=== PATIENT | female | born 1965 | race Caucasian/White ===

== ENCOUNTER 2016-10-07 18:40 | Emergency (ER) | payer BC, OTHER ==
[2016-10-07 18:59] VITALS: BP 150/74; PULSE 70; TEMP 98; BMI 21.9
--- NOTE | 2016-10-07 19:29 | PDOC ---
History of Present Illness <Ezio Mathis - Last Filed: 10/07/16 19:24> - General History Source: Patient Exam Limitations: No Limitations - History of Present Illness Initial Comments: 10/07/16 19:30 The patient is a 51 year old female, with no significant past medical history who presents to the emergency department with intermittent episodes of dizziness , chest pain, and SOB, for about 2-3 weeks. She reports having fainting sensations about a week ago, with numbness in her left arm followed by dizziness and SOB. She reports after on having an abnormal EKG and abnormal blood pressure reading at an urgent care, and was sent to [place] [facility] where she was later discharged home. She reports this week having a similar episode where she was taken to [facility] ER and was discharged with a referral to cardiology. She reports while at the Cardiology was given a prescription of Atenolol. She reports today while at school having another episode of dizziness and SOB. She denies recent fevers, chills, headache or dizziness. She denies recent nausea, vomit, diarrhea or constipation. She denies recent dysuria, frequency, urgency or hematuria. Allergies: NKA Past surgical history: None reported. Social history: Nonsmoker. Denies EtOH use and drug use. Primary Care Physician: <Meng Nathan - Last Filed: 10/07/16 19:31> - General Chief Complaint: Psychiatric Stated Complaint: HEAD & ARM NUMBNESS Past History - Past Medical History HTN: Yes Hypercholesterolemia: Yes - Psycho/Social/Smoking Cessation Hx Anxiety: No Suicidal Ideation: No Smoking Status: No Smoking History: Never smoked Number of Cigarettes Smoked Daily: 0 Hx Alcohol Use: No Drug/Substance Use Hx: No Substance Use Type: None <Ezio Mathis - Last Filed: 10/07/16 19:24> <Mneg Nathan - Last Filed: 10/07/16 19:31> - Past Medical History Allergies/Adverse Reactions: Allergies Allergy/AdvReac Type Severity Reaction Status Date / Time No Known Allergies Allergy Verified 10/07/16 18:50 Home Medications: Ambulatory Orders Atenolol [Tenormin] 25 mg PO DAILY 10/07/16 Rosuvastatin [Crestor -] 10 mg PO HS 10/07/16 Review of Systems - Review of Systems Constitutional: No: Symptoms Reported HEENTM: No: Symptoms Reported Respiratory: Yes: Shortness of Breath Cardiac (ROS): Yes: Chest Tightness : No: Symptoms Reported Musculoskeletal: No: Symptoms Reported Integumentary: No: Symptoms Reported Neurological: Yes: Numbness, Tingling Endocrine: No: Symptoms Reported All Other Systems: Reviewed and Negative <Meng Nathan - Last Filed: 10/07/16 19:31> *Physical Exam - Vital Signs Last Vital Signs Temp Pulse Resp BP Pulse Ox 98.0 F 70 16 150/74 100 10/07/16 18:48 10/07/16 18:48 10/07/16 18:48 10/07/16 18:48 10/07/16 18:48 - Physical Exam General Appearance: Yes: Nourished, Appropriately Dressed. No: Apparent Distress HEENT: positive: EOMI, SD, Normal ENT Inspection Neck: positive: Supple. negative: Tender, Carotid bruit Respiratory/Chest: positive: Lungs Clear, Normal Breath Sounds. negative: Respiratory Distress Cardiovascular: positive: Regular Rhythm, Regular Rate Gastrointestinal/Abdominal: positive: Normal Bowel Sounds, Soft. negative: Tender Musculoskeletal: positive: Normal Inspection Extremity: positive: Normal Capillary Refill, Normal Range of Motion Integumentary: positive: Normal Color Neurologic: positive: administrative support assoc II-XII NML intact, Fully Oriented, Alert, Normal Mood/ Affect, Normal Response, Motor Strength 5/5, Other (no drifts. neg romberg's. ) <Ezio Mathis - Last Filed: 10/07/16 19:24> - Vital Signs Last Vital Signs Temp Pulse Resp BP Pulse Ox 98.0 F 70 16 150/74 100 10/07/16 18:48 10/07/16 18:48 10/07/16 18:48 10/07/16 18:48 10/07/16 18:48 <Meng Nathan - Last Filed: 10/07/16 19:31> Medical Decision Making - Medical Decision Making 10/07/16 19:25 hx and physical c/w anxiety/stress disorder. pt insists she is under no stress and wants to know what's wrong with her now. I d/w my findings and impression with her and advice her to keep appointment w/ pmd tomorrow and continue her current evaluations as out patient <Ezio Mathis - Last Filed: 10/07/16 19:24> *DC/Admit/Observation/Transfer <Ezio Mathis - Last Filed: 10/07/16 19:24> <Meng Nathan - Last Filed: 10/07/16 19:31> Diagnosis at time of Disposition: Dizziness - Discharge Dispostion Disposition: HOME Condition at time of disposition: Good - Referrals Referrals: Desire Santacruz MD [Primary Care Provider] - Call tomorrow - Patient Instructions Additional Instructions: RELAXATION TECHNIQUES CONTROLLING YOUR BREATHING DISCUSSED SEE YOUR DOCTOR TOMORROW PLANNED RETURN IF NEW SYMPTOMS
--- NOTE | 2016-10-08 12:39 | EKG ---
Test Reason : Blood Pressure : / mmHG Vent. Rate : 055 BPM Atrial Rate : 055 BPM P-R Int : 176 ms QRS Dur : 072 ms QT Int : 412 ms P-R-T Axes : 071 -16 031 degrees QTc Int : 394 ms SINUS BRADYCARDIA CANNOT RULE OUT ANTERIOR INFARCT , AGE UNDETERMINED NO PREVIOUS ECGS AVAILABLE Confirmed by MD TOBIN, ANANDA ([id number]) on 10/08/2016 12:38:43 PM Referred By: JORGE A Confirmed By:ANANDA RUDD MD
== END 2016-10-07 19:48 | disposition home or self-care (01) ==
LOC: FER 18:40
DX: R42 Dizziness and giddiness (principal); I10 Essential (primary) hypertension; E78.00 Pure hypercholesterolemia, unspecified
CPT/HCPCS: 93005; 99282-25

== ENCOUNTER 2020-12-17 10:14 | Day surgery (SDC) | payer OTHER, BC ==
[2020-12-09 11:34] VITALS: BMI 24.0
[2020-12-17 10:59] VITALS: TEMP 98.2
[2020-12-17] MEDS ORDERED: MIDAZOLAM HCL 2 MG/2 ML SINGLE DOSE VIAL ONE (11:35)
[2020-12-17] MEDS ORDERED: fentaNYL CITRATE 250 MCG/5 ML VIAL ONE (11:35)
[2020-12-17] MEDS ORDERED: PROPOFOL 20 ML ONE (11:36)
[2020-12-17] MEDS ORDERED: LIDOCAINE HCL 2% (50ML VIAL) NR ONE ×2 (11:46→12:02)
[2020-12-17] MEDS ORDERED: LIDOCAINE HCL 2% (20ML MULTI-DOSE VIAL) ONE (11:49)
[2020-12-17] MEDS ORDERED: ONDANSETRON 4 MG/2 ML VIAL ONE (12:20)
[2020-12-17] MEDS ORDERED: KETOROLAC TROMETHAMINE 30 MG/1 ML VIAL ONE (12:20)
[2020-12-17] MEDS ORDERED: DEXAMETHASONE SOD PHOSPHATE 4 MG/1 ML VIAL ONE (12:20)
[2020-12-17] MEDS ORDERED: BUPIVACAINE HCL/PF 0.5% (5 MG/ML) 30 ML VIAL IJ ONE (12:20)
[2020-12-17 13:28] VITALS: BP 122/70; PULSE 72
== END 2020-12-17 14:06 | disposition home or self-care (01) ==
LOC: FASU 10:14
PROVIDERS: ATTEND Orthopaedic Surgery Hand Surgery
PROC: 0JNK0ZZ Release Left Hand Subcutaneous Tissue and Fascia, Open Approach (ICD-10-PCS; principal; 2020-12-17 12:00)
DX: M72.0 Palmar fascial fibromatosis [Dupuytren] (principal)
CPT/HCPCS: 88307-TC

== ENCOUNTER 2021-08-20 09:03 | Emergency (ER) | payer BC, OTHER ==
[2021-08-20 09:36] VITALS: BP 138/82; PULSE 76; TEMP 98.6; BMI 21.7
== END 2021-08-20 11:05 | disposition home or self-care (01) ==
LOC: FER 09:03 → SUPCPDRO 09:03 → FER 11:05
DX: R53.1 Weakness (principal); R42 Dizziness and giddiness
CPT/HCPCS: 36415; 84484; 93005; 99284-25

== ENCOUNTER 2021-09-10 09:29 | Day surgery (SDC) | payer BC, OTHER ==
[2021-09-08 14:22] VITALS: BMI 21.2
[2021-09-10] MEDS ORDERED: BUPIVACAINE HCL/PF 0.25% (2.5MG/ML) 10 ML VIAL ONE (10:52)
[2021-09-10] MEDS ORDERED: MIDAZOLAM HCL 2 MG/2 ML SINGLE DOSE VIAL ONE (12:15)
[2021-09-10] MEDS ORDERED: PROPOFOL 20 ML ONE (12:25)
[2021-09-10] MEDS ORDERED: BUPIVACAINE HCL/PF 0.25% (2.5MG/ML) 10 ML VIAL IJ ONE (12:40)
[2021-09-10] MEDS ORDERED: ONDANSETRON 4 MG/2 ML VIAL IVPUSH PRN (13:07)
[2021-09-10] MEDS ORDERED: oxyCODONE HCL 5 MG TABLET PO PRN ×2 (13:07→13:35)
[2021-09-10] MEDS ORDERED: PROMETHAZINE HCL 25 MG/1 ML VIAL IVPUSH PRN (13:07)
[2021-09-10] MEDS ORDERED: LACTATED RINGERS SOLUTION 1,000 ML IV SCH (13:15)
[2021-09-10] MEDS ORDERED: ACETAMINOPHEN INJECTION 100 ML IVPB ONE (13:18)
[2021-09-10] MEDS ORDERED: ACETAMINOPHEN 1000 MG/100 ML BAG IVPB ONE (13:32)
[2021-09-10 14:50] VITALS: TEMP 97.8
[2021-09-10 14:53] VITALS: BP 131/67; PULSE 65
== END 2021-09-10 15:15 | disposition home or self-care (01) ==
LOC: FASU 09:29
PROVIDERS: ATTEND Orthopaedic Surgery Sports Medicine
PROC: 0SBC4ZZ Excision of Right Knee Joint, Percutaneous Endoscopic Approach (ICD-10-PCS; principal; 2021-09-10 12:39)
DX: S83.241A Other tear of medial meniscus, current injury, right knee, initial encounter (principal); X58.XXXA Exposure to other specified factors, initial encounter; Y93.9 Activity, unspecified; Y92.9 Unspecified place or not applicable
CPT/HCPCS: 94760

== ENCOUNTER 2022-10-10 12:12 | Emergency (ER) | payer BC, OTHER ==
[2022-10-10 12:30] VITALS: BP 124/56; PULSE 81; RESP 18; TEMP 97.6; BMI 21.2
[2022-10-10] MEDS ORDERED: ACETAMINOPHEN 1000 MG/100 ML BAG IVPB ONE (14:08)
[2022-10-10] MEDS ORDERED: SODIUM CHLORIDE 1,000 ML IV ONE (14:08)
[2022-10-10] MEDS ORDERED: ACETAMINOPHEN INJECTION 100 ML IVPB ONE (14:16)
[2022-10-10 14:52] LABS: ALBUMIN 4.3 g/dl (3.4-5.0); BILIRUBIN,TOTAL 0.6 mg/dl (0.2-1); CALCIUM 9.7 mg/dl (8.5-10); CREATININE 0.7 mg/dl (0.55-1.3); TOT PROT 8.1 g/dl (6.4-8.2)
[2022-10-10 14:58] LABS: HEMATOCRIT 43.9 % (32.4-45.2); HEMOGLOBIN 14.7 G/dL (10.7-15.3); MCH 30.8 pg (25.7-33.7); MCHC 33.6 g/dl (32.0-36.0); MEAN CELL VOLUME 91.7 fl (80-96); RBC 4.79 10^6/uL (3.60-5.2); RDW 13.4 % (11.6-15.6); WHITE BLOOD COUNT 7.8 10^3/uL (4.0-10.8)
[2022-10-10 15:03] LABS: PLATELET ESTIMATE ADEQUATE
== END 2022-10-10 17:30 | disposition home or self-care (01) ==
LOC: FER 12:12
DX: R10.30 Lower abdominal pain, unspecified (principal)
CPT/HCPCS: 36415; 74177-TC; 80053; 81003; 85027; 87086; 99285-25; Q9967

== ENCOUNTER 2023-02-18 18:25 | Emergency (ER) | payer BC, OTHER ==
[2023-02-18 18:43] VITALS: BP 170/92; PULSE 69; RESP 20; TEMP 98.1; BMI 22.1
[2023-02-18] MEDS ORDERED: ONDANSETRON *ODT* 4 MG TABLET SL ONE (19:30)
[2023-02-18] MEDS ORDERED: ONDANSETRON *ODT* 4 MG TABLET ONE (19:32)
== END 2023-02-18 19:59 | disposition home or self-care (01) ==
LOC: FER 18:25
DX: R51.9 Headache, unspecified (principal); R07.89 Other chest pain; R68.2 Dry mouth, unspecified; R19.7 Diarrhea, unspecified
CPT/HCPCS: 99283-25; Q0162

== ENCOUNTER 2023-04-20 17:25 | Emergency (ER) | payer BC, OTHER ==
[2023-04-20 17:41] VITALS: BP 157/84; PULSE 71; RESP 18; TEMP 97.8; BMI 22.4
[2023-04-20] MEDS ORDERED: ACETAMINOPHEN 500 MG TABLET (FP) PO ONE (18:13)
[2023-04-20] MEDS ORDERED: ACETAMINOPHEN 325 MG TABLET (FP) ONE (18:20)
[2023-04-20] MEDS ORDERED: oxyCODONE HCL 5 MG TABLET PO ONE (18:56)
[2023-04-20] MEDS ORDERED: oxyCODONE HCL 5 MG TABLET ONE (19:10)
== END 2023-04-20 20:24 | disposition home or self-care (01) ==
LOC: FER 17:25
DX: S16.1XXA Strain of muscle, fascia and tendon at neck level, initial encounter (principal); S09.90XA Unspecified injury of head, initial encounter; W20.8XXA Other cause of strike by thrown, projected or falling object, initial encounter
CPT/HCPCS: 70450-TC; 72125-TC; 99284-25

== ENCOUNTER 2023-08-17 18:00 | Emergency (ER) | payer BC, OTHER ==
[2023-08-17] MEDS ORDERED: SODIUM CHLORIDE 0.9% 500 ML INFUS.BAG IV ONE (18:36)
[2023-08-17] MEDS ORDERED: ACETAMINOPHEN 1000 MG/100 ML BAG IVPB ONE (18:36)
[2023-08-17] MEDS ORDERED: CEFTRIAXONE 1,000 MG in DEXTROSE 5%-WATER - 50 ML IVPB ONE (18:36)
[2023-08-17 18:38] VITALS: RESP 16; BMI 22.6
[2023-08-17] MEDS ORDERED: ACETAMINOPHEN INJECTION 100 ML IVPB ONE (18:48)
[2023-08-17] MEDS ORDERED: cefTRIAXone SODIUM 1 GM VIAL ONE (18:48)
[2023-08-17 19:01] LABS: EPITHELIAL CELLS 0-5 /hpf
[2023-08-17 19:22] LABS: HEMATOCRIT 39.6 % (32.4-45.2); HEMOGLOBIN 13.3 G/dL (10.7-15.3); MCH 30.8 pg (25.7-33.7); MCHC 33.5 g/dl (32.0-36.0); MEAN CELL VOLUME 91.8 fl (80-96); MEAN PLT VOLUME 8.5 fl (7.5-11.1); PLATELET COUNT 270.7 10^3/uL (134-434); RBC 4.31 10^6/uL (3.60-5.2); RDW 13.9 % (11.6-15.6); WHITE BLOOD COUNT 8.1 10^3/uL (4.0-10.8)
[2023-08-17 19:32] LABS: ALBUMIN 4.5 g/dl (3.4-5.0); BILIRUBIN,TOTAL 0.3 mg/dl (0.2-1); CALCIUM 9.6 mg/dl (8.5-10.1); CREATININE 0.9 mg/dl (0.6-1.3); POTASSIUM 3.8 mmol/L (3.5-5.1); TOT PROT 7.7 g/dl (6.4-8.2)
[2023-08-17 19:36] LABS: PLATELET ESTIMATE ADEQUATE
[2023-08-17 20:15] VITALS: BP 138/68; PULSE 66; TEMP 97.9
[2023-08-17] MEDS ORDERED: CIPROFLOXACIN 250 MG TABLET (RESTRICTED TO ID) PO ONE (21:40)
== END 2023-08-17 21:56 | disposition home or self-care (01) ==
LOC: FER 18:00
PROC: 3E03329 Introduction of Other Anti-infective into Peripheral Vein, Percutaneous Approach (ICD-10-PCS; principal; 2023-08-17)
PROC: 3E033NZ Introduction of Analgesics, Hypnotics, Sedatives into Peripheral Vein, Percutaneous Approach (ICD-10-PCS; 2023-08-17)
DX: R30.0 Dysuria (principal); R10.30 Lower abdominal pain, unspecified; N39.0 Urinary tract infection, site not specified
CPT/HCPCS: 36415; 74177-TC; 80053; 81003; 81015; 85027; 87086; 99285-25; J0131; Q9967

== ENCOUNTER 2023-08-19 20:27 | Emergency (ER) | payer BC, OTHER ==
[2023-08-19 20:46] VITALS: BP 150/66; PULSE 62; RESP 16; TEMP 98.2; BMI 22.6
== END 2023-08-19 21:58 | disposition home or self-care (01) ==
LOC: FER 20:27
DX: K59.00 Constipation, unspecified (principal); R11.0 Nausea; R10.84 Generalized abdominal pain
CPT/HCPCS: 99283-25

== ENCOUNTER 2023-09-01 03:57 | Day surgery (SDC) | payer BC, OTHER ==
[2023-08-29 11:39] VITALS: BMI 22.8
[2023-09-01] MEDS ORDERED: BUPIVACAINE HCL/PF 0.25% (2.5MG/ML) 10 ML VIAL ONE (10:49)
[2023-09-01] MEDS ORDERED: SUCCINYLCHOLINE CHLORIDE 200 MG/10 ML SYRINGE ONE (14:30)
[2023-09-01] MEDS ORDERED: PROPOFOL 40 ML ONE (14:30)
[2023-09-01] MEDS ORDERED: MIDAZOLAM HCL 2 MG/2 ML SINGLE DOSE VIAL ONE (14:30)
[2023-09-01] MEDS ORDERED: ROCURONIUM BROMIDE 50 MG/5 ML SYRINGE ONE ×2 (14:30→16:02)
[2023-09-01] MEDS: ceFAZolin SODIUM 1 GM VIAL IVPB ONE (14:50)
[2023-09-01] MEDS: BUPIVACAINE HCL/PF 0.25% (2.5MG/ML) 10 ML VIAL IJ ONE (15:20)
[2023-09-01] MEDS ORDERED: SEVOFLURANE 250 ML BTL ONE (15:40)
[2023-09-01] MEDS ORDERED: KETOROLAC TROMETHAMINE 30 MG/1 ML VIAL ONE (16:07)
[2023-09-01] MEDS ORDERED: ONDANSETRON 4 MG/2 ML VIAL ONE (17:08)
[2023-09-01] MEDS ORDERED: SUGAMMADEX SODIUM 200 MG/2 ML VIAL ONE (17:17)
[2023-09-01] MEDS ORDERED: ONDANSETRON 4 MG/2 ML VIAL IVPUSH PRN (18:15)
[2023-09-01] MEDS ORDERED: LACTATED RINGERS SOLUTION 1,000 ML IV SCH (18:15)
[2023-09-01] MEDS ORDERED: PROMETHAZINE HCL 25 MG/1 ML VIAL IVPB PRN (18:15)
[2023-09-01] MEDS ORDERED: oxyCODONE HCL 5 MG TABLET PO PRN (18:15)
[2023-09-01] MEDS ORDERED: ACETAMINOPHEN INJECTION 100 ML IVPB ONE (18:29)
[2023-09-01] MEDS: ACETAMINOPHEN 1000 MG/100 ML BAG IVPB PRN (18:31)
[2023-09-01] MEDS ORDERED: morphine CARPU-JECT 2 MG/1 ML DISP.SYRIN IVPUSH PRN (19:10)
[2023-09-01] MEDS ORDERED: ACETAMINOPHEN 650 MG/20.3 ML ORAL SOLUTION (CUPS) PO SCH (19:15)
[2023-09-01] MEDS: oxyCODONE HCL 5 MG TABLET PO PRN (20:47)
[2023-09-01] MEDS: LACTATED RINGERS SOLUTION 1,000 ML/1,000 ML INFUS.BAG IV SCH (20:51)
[2023-09-01] MEDS ORDERED: KETOROLAC TROMETHAMINE 30 MG/1 ML VIAL IVPUSH SCH (22:00)
[2023-09-01] MEDS: KETOROLAC TROMETHAMINE 30 MG/1 ML VIAL IVPUSH SCH (23:53)
[2023-09-02] MEDS: ACETAMINOPHEN 650 MG/20.3 ML ORAL SOLUTION (CUPS) PO SCH (01:00)
[2023-09-02 09:19] VITALS: BP 120/86; PULSE 75; RESP 20; TEMP 98.1
[2023-09-02] MEDS: LOSARTAN POTASSIUM 50 MG TABLET PO SCH (12:10)
[2023-09-02] MEDS ORDERED: ATORVASTATIN CA 40 MG TABLET (FP) PO SCH (22:00)
== END 2023-09-02 14:35 | disposition home or self-care (01) ==
LOC: JASU-SURG 03:57 → JASUSAT 03:57 → J6S 20:30 → JASUSAT 09-02 14:35
PROVIDERS: ATTEND Surgery
PROC: 8E0W4CZ Robotic Assisted Procedure of Trunk Region, Percutaneous Endoscopic Approach (ICD-10-PCS; 2023-09-01)
PROC: 0WUF4JZ Supplement Abdominal Wall with Synthetic Substitute, Percutaneous Endoscopic Approach (ICD-10-PCS; 2023-09-01)
PROC: 0WUF4JZ Supplement Abdominal Wall with Synthetic Substitute, Percutaneous Endoscopic Approach (ICD-10-PCS; principal; 2023-09-01 14:00)
DX: K42.9 Umbilical hernia without obstruction or gangrene (principal); K43.9 Ventral hernia without obstruction or gangrene
CPT/HCPCS: 49593; S2900; 94760; C1781; J0131

== ENCOUNTER 2023-12-05 08:10 | Emergency (ER) | payer BC, OTHER ==
[2023-12-05 08:19] VITALS: BP 142/72; PULSE 76; RESP 18; TEMP 97.9; BMI 22.4
[2023-12-05] MEDS ORDERED: MECLIZINE HCL 25 MG TABLET (FP) ONE (09:35)
[2023-12-05] MEDS ORDERED: METOCLOPRAMIDE HCL INJECTION 10 MG/2 ML VIAL ONE (09:35)
[2023-12-05] MEDS ORDERED: ACETAMINOPHEN INJECTION 100 ML IVPB ONE (09:35)
[2023-12-05 09:40] LABS: BASO % 0.7 % (0-2.0); EOS % 3.4 % (0-4.5); HEMATOCRIT 38.7 % (32.4-45.2); MCH 30.3 pg (25.7-33.7); MCHC 33.6 g/dl (32.0-36.0); MEAN CELL VOLUME 90.2 fl (80-96); MEAN PLT VOLUME 8.5 fl (7.5-11.1); MONO % 5.3 % (3.8-10.2); NEUT % 61.6 % (42.8-82.8); PLATELET COUNT 291 10^3/uL (134-434); RBC 4.29 M/mm3 (3.60-5.2); RDW 13.4 % (11.6-15.6); WHITE BLOOD COUNT 5.6 K/mm3 (4.0-10.0)
[2023-12-05] MEDS: METOCLOPRAMIDE HCL INJECTION 10 MG/2 ML VIAL IVPUSH ONE (09:52)
[2023-12-05] MEDS: ACETAMINOPHEN 1000 MG/100 ML BAG IVPB ONE (09:52)
[2023-12-05] MEDS: LACTATED RINGERS SOLUTION 1000 ML INFUS.BAG IV ONE (09:52)
[2023-12-05] MEDS: MECLIZINE HCL 25 MG TABLET (FP) PO ONE (09:53)
[2023-12-05 09:55] LABS: PH,URINE 6.5 (5.0-8.0); URINE APPEARANCE CLEAR; URINE BILIRUBIN NEGATIVE (NEGATIVE); URINE COLOR YELLOW; URINE GLUCOSE (UA) NEGATIVE (NEGATIVE); URINE KETONE NEGATIVE (NEGATIVE); URINE LEUK ESTERASE NEGATIVE (NEGATIVE); URINE NITRITE NEGATIVE (NEGATIVE); URINE PROTEIN NEGATIVE (NEGATIVE); URINE UROBILINOGEN 0.2 mg/dL (0.2-1.0)
[2023-12-05 10:14] LABS: POTASSIUM 4.3 mmol/L (3.5-5.1)
[2023-12-05 10:16] LABS: CALCIUM 9.6 mg/dL (8.5-10.1)
[2023-12-05 10:17] LABS: ALBUMIN 3.6 g/dl (3.4-5.0); BLOOD UREA NITROGEN 13.8 mg/dL (7-18); MAGNESIUM 2.5 mg/dL (1.8-2.4)
[2023-12-05 10:20] LABS: CREATININE 0.8 mg/dL (0.55-1.3)
[2023-12-05 10:21] LABS: BILIRUBIN,TOTAL 0.4 mg/dL (0.2-1); TOT PROT 7.5 g/dl (6.4-8.2)
== END 2023-12-05 13:00 | disposition home or self-care (01) ==
LOC: JER 08:10
PROC: 3E033NZ Introduction of Analgesics, Hypnotics, Sedatives into Peripheral Vein, Percutaneous Approach (ICD-10-PCS; principal; 2023-12-05)
PROC: 3E033GC Introduction of Other Therapeutic Substance into Peripheral Vein, Percutaneous Approach (ICD-10-PCS; 2023-12-05)
DX: R51.9 Headache, unspecified (principal); R42 Dizziness and giddiness; R26.81 Unsteadiness on feet; H53.149 Visual discomfort, unspecified; R20.2 Paresthesia of skin; R53.1 Weakness; Z20.822 Contact with and (suspected) exposure to COVID-19
CPT/HCPCS: 0241U-QW; 36415; 70450-TC; 70496-TC; 70498-TC; 80053; 81003; 83735; 85025; 87086; 87186; 99284-25; J0131; Q9967

== ENCOUNTER 2024-02-26 16:23 | Emergency (ER) | payer BC, OTHER ==
[2024-02-26 16:38] VITALS: BP 143/82; PULSE 77; RESP 18; TEMP 98.5; BMI 22.6
[2024-02-26 18:08] LABS: BASO % 0.2 % (0-2.0); EOS % 1.4 % (0-4.5); HEMATOCRIT 40.1 % (32.4-45.2); HEMOGLOBIN 13.6 GM/dL (10.7-15.3); LYMPH % 21.2 % (8-40); MCH 30.2 pg (25.7-33.7); MCHC 33.9 g/dl (32.0-36.0); MEAN CELL VOLUME 89.2 fl (80-96); MEAN PLT VOLUME 7.5 fl (7.5-11.1); MONO % 5.2 % (3.8-10.2); PLATELET COUNT 336 10^3/uL (134-434); RDW 13.5 % (11.6-15.6); WHITE BLOOD COUNT 8.8 K/mm3 (4.0-10.0)
[2024-02-26] MEDS ORDERED: ACETAMINOPHEN INJECTION 100 ML IVPB ONE (18:17)
[2024-02-26] MEDS: ACETAMINOPHEN 1000 MG/100 ML BAG IVPB ONE (18:21)
[2024-02-26] MEDS: LACTATED RINGERS SOLUTION 1000 ML INFUS.BAG IV ONE (18:21)
[2024-02-26 18:33] LABS: POTASSIUM 3.9 mmol/L (3.5-5.1)
[2024-02-26 18:34] LABS: BLOOD UREA NITROGEN 18.9 mg/dL (7-18); CALCIUM 9.4 mg/dL (8.5-10.1)
[2024-02-26 18:38] LABS: CREATININE 0.8 mg/dL (0.55-1.3)
[2024-02-26 18:40] LABS: BILIRUBIN,TOTAL 0.4 mg/dL (0.2-1)
[2024-02-26 18:56] LABS: PH,URINE 6.5 (5.0-8.0); URINE APPEARANCE CLEAR; URINE BILIRUBIN NEGATIVE (NEGATIVE); URINE COLOR YELLOW; URINE GLUCOSE (UA) NEGATIVE (NEGATIVE); URINE KETONE NEGATIVE (NEGATIVE); URINE LEUK ESTERASE NEGATIVE (NEGATIVE); URINE NITRITE NEGATIVE (NEGATIVE); URINE PROTEIN NEGATIVE (NEGATIVE); URINE UROBILINOGEN 0.2 mg/dL (0.2-1.0)
== END 2024-02-26 19:20 | disposition home or self-care (01) ==
LOC: JER 16:23
PROC: 3E033NZ Introduction of Analgesics, Hypnotics, Sedatives into Peripheral Vein, Percutaneous Approach (ICD-10-PCS; principal; 2024-02-26)
DX: R42 Dizziness and giddiness (principal); N95.1 Menopausal and female climacteric states; R00.2 Palpitations; Z20.822 Contact with and (suspected) exposure to COVID-19
CPT/HCPCS: 0241U-QW; 36415; 71045-TC-FY; 80053; 81003; 84443; 84484; 85025; 87086; 93005; 93010; 99285-25; J0131

== ENCOUNTER 2024-07-06 03:42 | Day surgery (SDC) | payer OTHER, BC ==
[2024-07-05 08:46] VITALS: BMI 22.3
[2024-07-06] MEDS ORDERED: BUPIVACAINE HCL/PF 0.25% (2.5MG/ML) 10 ML VIAL ONE (07:24)
[2024-07-06] MEDS ORDERED: PROPOFOL 20 ML ONE ×2 (07:30→09:19)
[2024-07-06] MEDS ORDERED: ROCURONIUM BROMIDE 50 MG/5 ML SYRINGE ONE (07:34)
[2024-07-06] MEDS ORDERED: MIDAZOLAM HCL 2 MG/2 ML SINGLE DOSE VIAL ONE (07:35)
[2024-07-06] MEDS: ceFAZolin SODIUM 1 GM VIAL IVPB ONE (08:22)
[2024-07-06] MEDS ORDERED: DEXAMETHASONE SOD PHOSPHATE 4 MG/1 ML VIAL ONE (08:27)
[2024-07-06] MEDS ORDERED: ceFAZolin SODIUM 1 GM VIAL ONE (08:27)
[2024-07-06] MEDS ORDERED: ONDANSETRON 4 MG/2 ML VIAL ONE (08:27)
[2024-07-06] MEDS: BUPIVACAINE HCL/PF 2.5 MG/ML - 30 ML VIAL IJ ONE (08:49)
[2024-07-06] MEDS ORDERED: SUGAMMADEX SODIUM 200 MG/2 ML VIAL ONE (09:05)
[2024-07-06] MEDS ORDERED: oxyCODONE HCL 5 MG TABLET PO PRN (09:11)
[2024-07-06] MEDS ORDERED: ONDANSETRON 4 MG/2 ML VIAL IVPUSH PRN (09:11)
[2024-07-06] MEDS ORDERED: SUCCINYLCHOLINE CHLORIDE 200 MG/10 ML SYRINGE ONE (09:47)
[2024-07-06] MEDS ORDERED: ALBUTEROL SO4 0.083% IH SOL 2.5 MG/3 ML VIAL.NEB. NEB ONE (10:09)
[2024-07-06] MEDS: ALBUTEROL SO4 0.5 % INH SOLN 2.5 MG/0.5 ML VIAL.NEB. NEB ONE (10:15)
[2024-07-06 13:41] VITALS: RESP 20; TEMP 97.3
[2024-07-06] MEDS: ACETAMINOPHEN 500 MG TABLET (FP) PO ONE (13:54)
[2024-07-06 14:10] VITALS: BP 105/53; PULSE 78
== END 2024-07-06 14:22 | disposition home or self-care (01) ==
LOC: JASU-SURG 03:42
PROVIDERS: ATTEND Surgery
PROC: 0WJF4ZZ Inspection of Abdominal Wall, Percutaneous Endoscopic Approach (ICD-10-PCS; 2024-07-06)
PROC: 0JB80ZZ Excision of Abdomen Subcutaneous Tissue and Fascia, Open Approach (ICD-10-PCS; principal; 2024-07-06 08:00)
DX: L92.3 Foreign body granuloma of the skin and subcutaneous tissue (principal)
CPT/HCPCS: 88300-TC; 94640; 94760